=== PATIENT | male | born 1970 | race African-American/Black ===

== ENCOUNTER 2016-05-07 19:44 | Emergency (ER) | payer OTHER ==
[~2016-05-07] VITALS: Ht 182.9 cm; Wt 101.8 kg
[~2016-05-07 19:44] MED LIST: FLUCONAZOLE100 MG PO; FUTURO RESTORI1 EACH MC; GLUCOPHAGE1000 MG PO; HYDROCHLOROTHIA25 MG PO; LEVEMIR FL100 UNIT/1 SC; LEVEMIR100 UNIT/2 SC; LISINOPRIL5 MG PO; LORTAB 5-325 M1 EACH PO; MEN'S MULTI-VI1 EACH PO; METFORMIN HCL500 MG PO; MOBIC7.5 MG PO; NEURONTIN300 MG PO; NEXIUM40 MG PO; NO HOME MEDS; NORCO 5/3251 TABLET PO; NOVOLOG 10100 UNITS/ SC; NOVOLOG PE100 UNITS/ SC; OMEPRAZOLE20 M2 PO; PEPTO BISMOL240 ML PO; PRILOSEC OTC20 MG PO; PROTEIN POWDER PO; ULTRAM50 MG PO; ZOFRAN ODT8 MG PO; ZOFRAN4 MG PO
[2016-05-07 20:09] LABS: POINT-OF-CARE METER ID UU13113778
[2016-05-07 20:37] LABS: HEMATOCRIT 41.6 % (38.0-50.0); MCH 31.4 PG (29.0-34.0); MCHC 33.4 G/DL (30.0-36.0); MCV 93.9 FL (86-99); MEAN PLAT.VOLUME 10.5 uM^3 (9.0-12.4); PLATELET COUNT 233 K/uL (156-360); RBC DIS.WIDTH-CV 11.5 % (11.8-14.6); RBC DIS.WIDTH-SD 39.7 % (39-53); RED BLOOD COUNT 4.43 M/uL (4.00-5.50); WHITE BLOOD COUNT 10.8 K/uL (4.1-10.2)
[2016-05-07 20:43] LABS: CHLORIDE 97 mEq/L (99-109); POTASSIUM 4.5 mEq/L (3.7-5.4); SODIUM 137 mEq/L (136-147)
[2016-05-07 20:44] LABS: GLUCOSE 297 mg/dL (70-99)
[2016-05-07 20:46] LABS: ANION GAP 16 MEQ/L (2-14)
[2016-05-07 20:48] LABS: GFR ESTIMATE (CALCULATED) > 59 mL/min/
[2016-05-07 20:49] LABS: UREA NITROGEN (BUN) 14 mg/dL (9-23)
[2016-05-07 22:05] LABS: TOTAL BILIRUBIN 0.8 mg/dL (0.0-1.0)
[2016-05-07 22:06] LABS: ALKALINE PHOSPHATASE 71 IU/L (3-129)
[2016-05-07 22:09] LABS: DIRECT BILIRUBIN 0.3 mg/dL (0.0-0.3)
[2016-05-07 22:10] LABS: LIPASE 24 U/L (1.0-51.0)
[2016-05-07] MEDS ORDERED: ZOFRAN4 MG PO (23:29)
[2016-05-07 23:37] VITALS: BP 150/79
== END 2016-05-07 23:58 | disposition home or self-care (01) ==
LOC: EME 19:44
DX: R11.10 Vomiting, unspecified (principal); R10.9 Unspecified abdominal pain; E11.9 Type 2 diabetes mellitus without complications; F17.200 Nicotine dependence, unspecified, uncomplicated
CPT/HCPCS: 80048; 80076; 81003; 82948; 83690; 85027; 99281; 99285; J2270; J2405; J7030; S0028

== ENCOUNTER 2016-05-09 10:06 | Emergency (ER) | payer OTHER ==
[~2016-05-09] VITALS: Ht 182.9 cm; Wt 100.9 kg
[2016-05-09 10:32] LABS: HEMATOCRIT 42.4 % (38.0-50.0); MCH 32.1 PG (29.0-34.0); MCHC 33.7 G/DL (30.0-36.0); MCV 95.3 FL (86-99); PLATELET COUNT 230 K/uL (156-360); RBC DIS.WIDTH-CV 11.6 % (11.8-14.6); RBC DIS.WIDTH-SD 40.5 % (39-53); RED BLOOD COUNT 4.45 M/uL (4.00-5.50)
[2016-05-09 10:40] LABS: CHLORIDE 100 mEq/L (99-109); POTASSIUM 4.1 mEq/L (3.7-5.4); SODIUM 139 mEq/L (136-147)
[2016-05-09 10:43] LABS: GLUCOSE 224 mg/dL (70-99)
[2016-05-09 10:44] LABS: ANION GAP 10 MEQ/L (2-14)
[2016-05-09 10:46] LABS: ALKALINE PHOSPHATASE 62 IU/L (3-129); GFR ESTIMATE (CALCULATED) > 59 mL/min/
[2016-05-09 10:48] LABS: DIRECT BILIRUBIN 0.3 mg/dL (0.0-0.3)
[2016-05-09 10:50] LABS: LIPASE 73 U/L (1.0-51.0); UREA NITROGEN (BUN) 23 mg/dL (9-23)
[2016-05-09] MEDS ORDERED: ZOFRAN4 MG PO (14:30)
[2016-05-09 16:07] VITALS: BP 159/81
== END 2016-05-09 16:08 | disposition home or self-care (01) ==
LOC: EME 10:06
PROVIDERS: Emergency Medicine
DX: R11.2 Nausea with vomiting, unspecified (principal); E86.0 Dehydration; E11.9 Type 2 diabetes mellitus without complications
CPT/HCPCS: 74176; 80048; 80076; 83690; 85027; 99281; 99284; J2270; J2405; J7030

== ENCOUNTER 2016-05-20 15:47 | Emergency (ER) | payer OTHER ==
[~2016-05-20] VITALS: Ht 182.9 cm; Wt 97.7 kg
[2016-05-20] MEDS ORDERED: NAPROSYN500 MG PO (17:06)
[2016-05-20] MEDS ORDERED: FLEXERIL10 MG PO (17:06)
[2016-05-20 17:25] VITALS: BP 131/81
== END 2016-05-20 17:26 | disposition home or self-care (01) ==
LOC: EME 15:47
DX: S90.122A Contusion of left lesser toe(s) without damage to nail, initial encounter (principal); S39.92XA Unspecified injury of lower back, initial encounter; W18.30XA Fall on same level, unspecified, initial encounter
CPT/HCPCS: 73630; 99281; 99284

== ENCOUNTER 2016-10-06 12:06 | Emergency (ER) | payer OTHER ==
[~2016-10-06] VITALS: Ht 182.9 cm; Wt 97.7 kg
[~2016-10-06 12:06] MED LIST changes: +FLEXERIL10 MG PO; +NAPROSYN500 MG PO
[2016-10-06 14:50] LABS: EOSINOPHIL (%) 0.5 % (0-5); HEMATOCRIT 37.2 % (38.0-50.0); IMMATURE GRANULOCYTE (%) 0.3 % (0.0-0.7); INSTRUMENT ABS NEUTROPHIL CT 3.1 K/uL; LYMPHOCYTE COUNT 2.2 K/uL (1.0-2.8); MCH 31.9 PG (29.0-34.0); MCHC 33.6 G/DL (30.0-36.0); MCV 94.9 FL (86-99); MEAN PLAT.VOLUME 9.9 uM^3 (9.0-12.4); MONOCYTE (%) 11.7 % (3-12); MONOCYTE COUNT 0.7 K/uL (0-0.8); NEUTROPHIL (%) 50.8 % (45-76); NEUTROPHIL COUNT 3.1 K/uL (1.8-6.4); PLATELET COUNT 182 K/uL (156-360); RBC DIS.WIDTH-CV 11.3 % (11.8-14.6); RBC DIS.WIDTH-SD 38.7 % (39-53); RED BLOOD COUNT 3.92 M/uL (4.00-5.50); WHITE BLOOD COUNT 6.1 K/uL (4.1-10.2)
[2016-10-06] MEDS ORDERED: ZOFRAN4 MG PO (14:57)
[2016-10-06] MEDS ORDERED: MOTRIN800 MG PO (14:57)
[2016-10-06 15:02] LABS: CHLORIDE 105 mEq/L (99-109); POTASSIUM 3.8 mEq/L (3.7-5.4); SODIUM 141 mEq/L (136-147)
[2016-10-06 15:03] LABS: GLUCOSE 194 mg/dL (70-99)
[2016-10-06 15:05] LABS: ANION GAP 10 MEQ/L (2-14)
[2016-10-06 15:07] LABS: GFR ESTIMATE (CALCULATED) > 59 mL/min/
[2016-10-06 15:08] LABS: UREA NITROGEN (BUN) 20 mg/dL (9-23)
[2016-10-06 15:28] VITALS: BP 146/80
== END 2016-10-06 16:16 | disposition home or self-care (01) ==
LOC: EME 12:06
PROVIDERS: Emergency Medicine
DX: R11.2 Nausea with vomiting, unspecified (principal); S80.11XA Contusion of right lower leg, initial encounter; W21.11XA Struck by baseball bat, initial encounter; E11.9 Type 2 diabetes mellitus without complications; Z79.84 Long term (current) use of oral hypoglycemic drugs
CPT/HCPCS: 73590; 80048; 85025; 99281; 99284; J2405; J7030